=== PATIENT | male | born 1950 | race Caucasian/White ===

== ENCOUNTER → 2018-05-14 | Outpatient (CLI) | payer OTHER ==
[~2018-05-14] MED LIST: CRESTOR10 MG PO; LIPITOR 20 MG T20 M1 PO; LISINOPRIL10 MG PO; LISINOPRIL20 MG PO; NORVASC10 MG PO; NORVASC5 MG PO; ZANAFLEX4 MG PO
--- NOTE | 2018-05-14 17:14 | EKG ---
[place] [address] [facility] [place] [address] ELECTROCARDIOGRAM REPORT Name: SUBHA RIVERS [id number] ������������������ Admission: 05/14/18 ������������������ Attend Phys: Mauro Graham MD Discharge: ������������������ Date of : 50 Report #: [id number] ����������������������������������������������������������������� [id number] THIS REPORT FOR: //name// [facility] Test Date: 2018-05-14 Test Time: 14:02:09 Pat Name: SUBHA RIVERS Department: Room: Gender: M Can Technician: CLAU : 1950 Requested By: Mauro Graham Order Number: [id number] MD: Reese Irvin Measurements Intervals [place] Rate: 67 P: -10 SC: 145 QRS: 2 QRSD: 99 T: 28 QT: 401 QTc: 424 Interpretive Statements Sinus rhythm Poor R wave progression No previous ECG available for comparison Electronically Signed On 05-14-2018 17:14:05 CDT by Reese Irvin [email or web address] ��������������������������������������������� <ELECTRONICALLY SIGNED> ���������������������������������������� By: Reese Irvin MD, [facility] ��������������������������������������������� 05/14/18 1714 1402 1402 Reese Irvin MD, FACC /EPI
== END | disposition home or self-care (01) ==
LOC: LITH 13:08
DX: N20.0 Calculus of kidney (principal); I10 Essential (primary) hypertension; E78.00 Pure hypercholesterolemia, unspecified; G47.33 Obstructive sleep apnea (adult) (pediatric); Z98.890 Other specified postprocedural states; Z87.442 Personal history of urinary calculi; Z79.899 Other long term (current) drug therapy

== ENCOUNTER → 2018-06-11 | Outpatient (CLI) | payer OTHER | END | disposition home or self-care (01) | LOC: LITH 13:36 | DX: N20.0 Calculus of kidney (principal); I10 Essential (primary) hypertension; E78.00 Pure hypercholesterolemia, unspecified; G47.33 Obstructive sleep apnea (adult) (pediatric); Z86.010 Personal history of colon polyps; Z98.890 Other specified postprocedural states; Z79.899 Other long term (current) drug therapy; Z85.51 Personal history of malignant neoplasm of bladder ==

== ENCOUNTER 2019-02-27 08:34 | Day surgery (SDC) | payer OTHER ==
[~2019-02-27] VITALS: Ht 170.2 cm; Wt 95.3 kg
[~2019-02-27 08:34] MED LIST changes: +COQ-10100 MG PO; +FLONASE 0.05%50 MCG NASAL; +MULTIVITAMINS1 EAC7 PO
[2019-02-27 09:24] VITALS: BP 130/81
--- NOTE | 2019-03-03 06:14 | O ---
[facility] [place] [address] OPERATIVE REPORT Name: SUBHA RIVERS Room #: DEP [facility]..#: [id number] Admission: 02/27/19 Attend Phys: Jaime Michael MD Discharge: 02/27/19 Date of : 50 Report #: [id number] THIS REPORT FOR: //name// CC: Uriel Michael DATE OF SERVICE: 02/27/2019 SURGEON: Jaime Michael MD AUTOMOTIVE MECHANICAL ENGINEER: None. PREOPERATIVE DIAGNOSIS: Bilateral upper lid dermatochalasia with superior visual field defect. POSTOPERATIVE DIAGNOSIS: Bilateral upper lid dermatochalasia with superior visual field defect. OPERATION PERFORMED: Bilateral upper lid functional blepharoplasty. ANESTHESIA: Local with IV sedation. COMPLICATIONS: None. INDICATIONS FOR SURGERY: This patient has acquired upper lid dermatochalasia with superior visual field loss both eyes because of excessive upper lid tissues to include skin and fat. Visual field testing demonstrates dense superior visual defects. Retesting with the upper lid elevated shows an improvement in visual field loss of over 30% and in excess of 12 degrees. The current procedures are undertaken in order to improve the patient's visual function. Informed consent was obtained to include but not limited to the loss of vision, bleeding, infection, scarring, failure to improve the problem and need for further surgery. DESCRIPTION OF OPERATION: The patient was taken to the operating room, where 2% Xylocaine with epinephrine mixed with equal parts of 0.75% Marcaine with Wydase was administered transcutaneously to each upper lid. The patient was then prepped and draped in the usual sterile fashion and a skin-marking pen was then utilized to outline an upper lid crease that was symmetrical on each side. Graefe forceps were then used to quantitate the redundant upper lid skin and it was similarly outlined. The incisions were then made with Angel scissors and a skin-muscle flap removed from each side with high-temp cautery. Hemostasis was achieved with the monopolar cautery as it was throughout the case. The [address] [address] OPERATIVE REPORT Name: SUBHA RIVERS Room #: DEP [facility]..#: [id number] Admission: 02/27/19 Attend Phys: Jaime Michael MD Discharge: 02/27/19 Date of : 50 Report #: [id number] orbital septum was then identified and the central and medial fat pads were inspected. The redundant soft tissue was then sculpted with the monopolar cautery. The upper lid crease was then reformed with tightening of the pretarsal orbicularis muscle. The upper lid crease was then further reformed with multiple interrupted 6-0 chromic sutures. The skin was then closed with a running 6-0 plain gut suture. The wound was then cleaned and dressed with ophthalmic antibiotic ointment and a nonstick dressing. The patient was transported to the recovery area, where cold compresses were applied, having tolerated the procedure well with no anesthetic or operative complications being noted. <ELECTRONICALLY SIGNED> By: Jaime Michael MD 03/03/19 0614 1113 1225 Jaime Michael MD /nt
== END 2019-02-27 11:55 | disposition home or self-care (01) ==
LOC: OR 08:34 → TBA 08:37 → OR 11:33
DX: H02.834 Dermatochalasis of left upper eyelid (principal); H02.831 Dermatochalasis of right upper eyelid; H53.462 Homonymous bilateral field defects, left side; H53.461 Homonymous bilateral field defects, right side; I10 Essential (primary) hypertension; E78.00 Pure hypercholesterolemia, unspecified; G47.30 Sleep apnea, unspecified; Z98.890 Other specified postprocedural states; Z87.442 Personal history of urinary calculi; Z85.51 Personal history of malignant neoplasm of bladder; Z87.891 Personal history of nicotine dependence; Z79.899 Other long term (current) drug therapy
CPT/HCPCS: 50010; 50101; 50386; 50398; 51636; 56531; 62110; 62850; 70005